=== PATIENT | female | born 1980 | race Caucasian/White ===

== ENCOUNTER 2019-04-07 14:30 | Emergency (ER) | payer MEDICARE ==
[~2019-04-07] VITALS: Ht 154.9 cm; Wt 59.1 kg
[~2019-04-07 14:30] MED LIST: ASCORBIC ACID500 MG PO; CATAPRES0.1 MG PO; FOSRENOL1000 MG PO; HYDRALAZINE HCL50 MG PO; LEVEMIR100 U/M1 SC; NOVOLOG100 U/M1 SC; TENORMIN50 MG PO; ULTRAM50 MG PO
[2019-04-07 14:46] VITALS: BP 188/91; Ht 154.9 cm; Wt 59.1 kg
[2019-04-07] MEDS ORDERED: NORMODYNE / TR100 MG PO (14:48)
[2019-04-07] MEDS ORDERED: ULTRAM50 MG PO (15:58)
== END 2019-04-07 16:36 | disposition home or self-care (01) ==
LOC: D.ER 14:30
DX: M25.511 Pain in right shoulder (principal)

== ENCOUNTER → 2019-04-08 11:24 | Outpatient (CLI) | payer MEDICARE ==
[2019-04-07 14:46] VITALS: BMI 24.6
[~2019-04-08 11:24] MED LIST changes: +NORMODYNE / TR100 MG PO
== END | disposition home or self-care (01) ==
LOC: D.MRI 11:24
PROVIDERS: ATTEND Internal Medicine Nephrology
DX: M79.601 Pain in right arm (principal)